=== PATIENT | male | born 1975 | race African-American/Black ===

== ENCOUNTER 2019-03-05 06:55 | Emergency (ER) | payer SELFPAY ==
[2019-03-05 07:57] LABS: #Basophils 0.1 thou/uL (0.0-0.2); #Eosinphils 0.2 thou/uL (0.0-0.7); #Lymphocytes 2.4 thou/uL (1.20-3.40); #Monocytes 0.8 thou/uL (0.11-0.59); #Neutrophils 7.7 thou/uL (1.40-6.50); %Eosinophils 1.8 % (0.0-10.0); %Lymphocytes 21.3 % (21.0-51.0); %Monocytes 7.1 % (0.0-10.0); %Neutrophils 68.8 % (42.0-75.0); ALT (SGPT) 24 U/L (8-55); AST (SGOT) 22 U/L (5-34); Albumin 3.8 g/dL (3.5-5.0); Alkaline Phosphatase 60 U/L (40-150); Anion Gap 9 mmol/L (10-20); BUN (Urea Nitrogen) 12 mg/dL (8.9-20.6); Bilirubin, Total 0.2 mg/dL (0.2-1.2); CK (CPK) 370 U/L (30-200); Calc. Creatinine Clearance 0 mL/min (70-130); Calcium 8.6 mg/dL (7.8-10.44); Carbon Dioxide 28 mmol/L (22-29); Chloride 106 mmol/L (98-107); Estimated GFR-MDRD Greater than 90; Globulin 2.4 g/dL (2.4-3.5); Glucose 88 mg/dL (70-105); Hemoglobin 15.6 g/dL (14.0-18.0); Mean Corpuscular HGB CONC 32.4 g/dL (32.0-36.0); Mean Corpuscular Hemoglobin 30.8 pg (27.0-31.0); Mean Corpuscular Volume 95.2 fL (78.0-98.0); Mean Platelet Volume 8.4 fL (7.4-10.4); Platelet Count 233 thou/uL (130-400); Potassium 4.1 mmol/L (3.5-5.1); Protein, Total 6.2 g/dL (6.0-8.3); RBC Distribution Width 11.9 % (11.5-14.5); Red Blood Cell (RBC) Count 5.06 mill/uL (4.70-6.10); Sodium 139 mmol/L (136-145); White Blood Cell (WBC) Count 11.2 thou/uL (4.8-10.8)
[2019-03-05] MEDS ORDERED: Aspirin Chewable 81 MG TAB ONE (09:05)
--- NOTE | 2019-03-05 09:47 | RAD ---
TWO VIEW CHEST: INDICATION: Chest pain. COMPARISON: Reference is made to 12/13/2008. FINDINGS: No lobar consolidation, effusion, or pneumothorax. Cardiac silhouette is normal in size. IMPRESSION: No focal consolidation. POS: [facility]
== END 2019-03-05 11:18 | disposition home or self-care (01) ==
LOC: ERS 06:55
DX: R07.89 Other chest pain (principal); F32.9 Major depressive disorder, single episode, unspecified; F17.210 Nicotine dependence, cigarettes, uncomplicated; Z71.6 Tobacco abuse counseling
CPT/HCPCS: 36415; 71046; 80053; 82550; 84484; 85025; 93005; 99406

== ENCOUNTER 2020-02-05 22:10 | Emergency (ER) | payer SELFPAY ==
[2020-02-05 22:37] LABS: #Basophils 0.2 thou/uL (0.0-0.2); #Eosinphils 0.1 thou/uL (0.0-0.7); #Lymphocytes 2.8 thou/uL (1.20-3.40); #Monocytes 1.3 thou/uL (0.11-0.59); #Neutrophils 8.5 thou/uL (1.40-6.50); %Basophils 1.7 % (0.0-1.0); %Eosinophils 0.7 % (0.0-10.0); %Lymphocytes 21.8 % (21.0-51.0); %Monocytes 9.9 % (0.0-10.0); %Neutrophils 65.9 % (42.0-75.0); Hemoglobin 15.1 g/dL (14.0-18.0); Mean Corpuscular HGB CONC 34.3 g/dL (32.0-36.0); Mean Corpuscular Hemoglobin 32.2 pg (27.0-31.0); Mean Platelet Volume 8.5 fL (7.4-10.4); Platelet Count 224 thou/uL (130-400); RBC Distribution Width 11.6 % (11.5-14.5); Red Blood Cell (RBC) Count 4.67 mill/uL (4.70-6.10); White Blood Cell (WBC) Count 12.9 thou/uL (4.8-10.8)
[2020-02-05 22:49] LABS: ALT (SGPT) 18 U/L (8-55); AST (SGOT) 23 U/L (5-34); Acetaminophen Less than 6.0 mcg/mL (10.0-30.0); Albumin 4.7 g/dL (3.5-5.0); Alcohol 20 mg/dL (Less than 10); Alkaline Phosphatase 86 U/L (40-110); Anion Gap 22 mmol/L (10-20); BUN (Urea Nitrogen) 11 mg/dL (8.9-20.6); Bilirubin, Total 1.3 mg/dL (0.2-1.2); CK (CPK) 484 U/L (30-200); Calc. Creatinine Clearance 0 mL/min (70-130); Calcium 9.7 mg/dL (7.8-10.44); Carbon Dioxide 18 mmol/L (22-29); Chloride 98 mmol/L (98-107); Estimated GFR-MDRD 72; Globulin 3.1 g/dL (2.4-3.5); Glucose 90 mg/dL (70-105); Potassium 3.7 mmol/L (3.5-5.1); Protein, Total 7.8 g/dL (6.0-8.3); Salicylate Less than 8.0 mg/dL (15.0-30.0); Sodium 134 mmol/L (136-145)
[2020-02-05] MEDS ORDERED: Lorazepam 2 MG/ML VIAL ONE (22:49)
[2020-02-05 23:03] LABS: Amphetamine Detected (NotDetected); Barbiturates Screen Not Detected (NotDetected); Benzodiazepine Screen Not Detected (NotDetected); Cocaine Metabolite Screen Detected (NotDetected); Medtox Control Line Valid? VALID (VALID); Medtox Reader # READER 1; Methadone Not Detected (NotDetected); Methamphetamine Detected (NotDetected); Opiate Screen Not Detected (NotDetected); Oxycodone Screen Not Detected (NotDetected); Phencyclidine (PCP) Not Detected (NotDetected); THC/Cannabinoid Screen Not Detected (NotDetected); Tricyclic Screen Not Detected (NotDetected)
== END 2020-02-05 23:07 | disposition home or self-care (01) ==
LOC: ERS 22:10
DX: F14.90 Cocaine use, unspecified, uncomplicated (principal); F15.90 Other stimulant use, unspecified, uncomplicated; F32.9 Major depressive disorder, single episode, unspecified; F17.210 Nicotine dependence, cigarettes, uncomplicated; Z71.6 Tobacco abuse counseling
CPT/HCPCS: 80053; 80306; 80307; 82550; 85025; 99406; J2060

== ENCOUNTER 2020-05-12 12:49 | Emergency (ER) | payer SELFPAY ==
--- NOTE | 2020-05-12 14:14 | RAD ---
LEFT FOOT THREE VIEWS: History: Pain. FINDINGS: Tarsals appear intact. Metatarsals and phalangeal intact. MTP joint is unremarkable. IMPRESSION: No acute findings. POS: AGW
[2020-05-12] MEDS ORDERED: Adacel (T-DAP) 0.5 ML SYRINGE ONE (14:31)
[2020-05-12] MEDS ORDERED: Bacitracin 1 PK ONE (14:32)
== END 2020-05-12 14:49 | disposition home or self-care (01) ==
LOC: ERS 12:49
DX: S91.331A Puncture wound without foreign body, right foot, initial encounter (principal); F32.9 Major depressive disorder, single episode, unspecified; F17.200 Nicotine dependence, unspecified, uncomplicated; Z23 Encounter for immunization; W22.8XXA Striking against or struck by other objects, initial encounter
CPT/HCPCS: 90471; 90715

== ENCOUNTER 2020-05-24 06:26 | Observation (INO) | payer SELFPAY ==
[2020-05-24 06:55] LABS: #Basophils 0.2 thou/uL (0.0-0.2); #Eosinphils 0.2 thou/uL (0.0-0.7); #Lymphocytes 3.6 thou/uL (1.20-3.40); #Monocytes 0.9 thou/uL (0.11-0.59); #Neutrophils 7.3 thou/uL (1.40-6.50); %Basophils 1.3 % (0.0-1.0); %Eosinophils 1.4 % (0.0-10.0); %Lymphocytes 29.9 % (21.0-51.0); %Monocytes 7.1 % (0.0-10.0); %Neutrophils 60.3 % (42.0-75.0); Hemoglobin 14.7 g/dL (14.0-18.0); Mean Corpuscular HGB CONC 33.3 g/dL (32.0-36.0); Mean Corpuscular Hemoglobin 31.3 pg (27.0-31.0); Mean Platelet Volume 8.4 fL (7.4-10.4); Platelet Count 233 thou/uL (130-400); RBC Distribution Width 11.6 % (11.5-14.5)
[2020-05-24 07:17] LABS: ALT (SGPT) 27 U/L (8-55); AST (SGOT) 26 U/L (5-34); Albumin 4.2 g/dL (3.5-5.0); Alkaline Phosphatase 68 U/L (40-110); Anion Gap 12 mmol/L (10-20); BUN (Urea Nitrogen) 10 mg/dL (8.9-20.6); Bilirubin, Total 0.2 mg/dL (0.2-1.2); Calc. Creatinine Clearance 0 mL/min (70-130); Calcium 8.9 mg/dL (7.8-10.44); Carbon Dioxide 25 mmol/L (22-29); Chloride 108 mmol/L (98-107); Estimated GFR-MDRD 83; Globulin 2.9 g/dL (2.4-3.5); Glucose 88 mg/dL (70-105); Lipase 21 U/L (8-78); Potassium 3.8 mmol/L (3.5-5.1); Protein, Total 7.1 g/dL (6.0-8.3); Sodium 141 mmol/L (136-145)
--- NOTE | 2020-05-24 07:47 | RAD ---
Chest one view HISTORY: Chest pain. COMPARISON: 03/05/2019. FINDINGS: Cardiac silhouette is magnified by projection. Pulmonary vasculature is unremarkable. Mediastinum is midline. No lobar consolidation or evidence of pneumothorax. gas pumping station helper leads overlie the chest. IMPRESSION : No active cardiopulmonary abnormalities are demonstrated.
[2020-05-24] MEDS ORDERED: Ondansetron ODT 4 MG TAB PO PRN (09:14)
[2020-05-24] MEDS ORDERED: Acetaminophen 325 MG TAB PO PRN (09:14)
[2020-05-24] MEDS ORDERED: Ondansetron PF 4 MG/2 ML Vial IVP PRN (09:14)
[2020-05-24 10:52] VITALS: BMI 25.1
[2020-05-24 11:22] LABS: Troponin I 0.016 ng/mL (< 0.028)
[2020-05-24 13:52] LABS: Troponin I 0.014 ng/mL (< 0.028)
--- NOTE | 2020-05-24 14:17 | PDOC.HHP ---
Hospitalist HPI - History of Present Illness chest pain History of Present Illness: 44 years old male with no significant past medical history who presented to the emergency room chest pain chest pain started earlier today was sharp nonradiating 8 out of 10 pain no fever chills nausea or vomiting no diaphoresis no exacerbating or alleviating factors and was constant in the emergency room first cardiac enzyme and EKGs were unremarkable however repeat EKG and cardiac monitoring showed possible heart block second-degree therefore patient is being admitted for further treatment management cardiology consulted for further arrhythmia reviewing EKG showed second-degree heart block type I Hospitalist ROS - Review of Systems All other systems reviewed; all pertinent +/- noted in HPI/Subj - Medication Medications: no home meds Hospitalist History - Past Medical History Cardiac: reports: no pertinent history Pulmonary: reports: no pertinent history - Past Surgical History Past Surgical History: reports: no pertinent history - Family History Family History: reports: no pertinent history - Social History Smoking Status: Never smoker Alcohol: reports: None Drugs: reports: none - Exam General Appearance: NAD, awake alert Eye: PERRL, anicteric sclera ENT: normocephalic atraumatic Neck: supple, symmetric Heart: RRR, no murmur Respiratory: CTAB, no wheezes Gastrointestinal: soft, non-tender Extremities: no cyanosis, no clubbing Skin: normal turgor Neurological: cranial nerve grossly intact Musculoskeletal: normal tone Psychiatric: normal affect, normal behavior Hospitalist Results - Labs Result Diagrams: 05/24/20 06:46 05/24/20 06:46 Lab results: WBC 12.0 thou/uL (4.8-10.8) H 05/24/20 06:46 Hgb 14.7 g/dL (14.0-18.0) 05/24/20 06:46 Hct 44.1 % (42.0-52.0) 05/24/20 06:46 MCV 94.0 fL (78.0-98.0) 05/24/20 06:46 Plt Count 233 thou/uL (130-400) 05/24/20 06:46 Neutrophils % 60.3 % (42.0-75.0) 05/24/20 06:46 Sodium 141 mmol/L (136-145) 05/24/20 06:46 Potassium 3.8 mmol/L (3.5-5.1) 05/24/20 06:46 Chloride 108 mmol/L (98-107) H 05/24/20 06:46 Carbon Dioxide 25 mmol/L (22-29) 05/24/20 06:46 BUN 10 mg/dL (8.9-20.6) 05/24/20 06:46 Creatinine 1.17 mg/dL (0.7-1.3) 05/24/20 06:46 Glucose 88 mg/dL (70-105) 05/24/20 06:46 Calcium 8.9 mg/dL (7.8-10.44) 05/24/20 06:46 Total Bilirubin 0.2 mg/dL (0.2-1.2) 05/24/20 06:46 AST 26 U/L (5-34) 05/24/20 06:46 ALT 27 U/L (8-55) 05/24/20 06:46 Alkaline Phosphatase 68 U/L (40-110) 05/24/20 06:46 Troponin I 0.014 ng/mL (< 0.028) 05/24/20 12:37 B-Natriuretic Peptide 102.1 pg/mL (0-100) H 05/24/20 06:46 Serum Total Protein 7.1 g/dL (6.0-8.3) 05/24/20 06:46 Albumin 4.2 g/dL (3.5-5.0) 05/24/20 06:46 Lipase 21 U/L (8-78) 05/24/20 06:46 - EKG Interpretation EKG: multipel reviewed some show NSR and one showed 2nd degree heart block type one - Radiology Interpretation Chest x-ray Additional Comment: No acute cardiopulmonary infiltrates Hospitalist H&P A/P - Problem (1) Chest pain Code(s): R07.9 - CHEST PAIN, UNSPECIFIED Status: Acute (2) Second degree heart block Code(s): I44.1 - ATRIOVENTRICULAR BLOCK, SECOND DEGREE Status: Acute - Plan Plan: Chest pain most likely musculoskeletal rule out ACS Cardiology has been consulted EKG reviewed most likely second-degree heart block type I, We will cycle cardiac enzymes and EKGs continue telemetry monitoring and send for stress test Send for lipid panel and A1c and start patient on aspirin, nitroglycerin and morphine as needed Repeat labs in a.m. Full code DVT prophylaxis Lovenox Patient will be placed under observation with lengths mellitus type I midnight
--- NOTE | 2020-05-24 15:20 | CON ---
DATE OF CONSULTATION: 05/24/2020 INDICATIONS FOR CONSULTATION: A 44-year-old patient with chest pain. HISTORY OF PRESENT ILLNESS: This is a 44-year-old gentleman who said he had chest pain for the 1st time earlier today. 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 He said it had been taken while he had been retained earlier. He was already picked up some money apparently, but he said he started noticing some right-sided chest pain, he said radiated to the right shoulder. He had no other associated symptoms at least according to what he is telling me. He has no previous cardiac history. He has no history of hypertension, diabetes, or hypercholesterolemia that we are aware of. He had one uncle who apparently had some strokes in his 40s and eventually . The only risk factor I see that he has for coronary artery disease is that he smokes a half a pack a day and smokes for about 20 years. When he presented to the emergency room and I believe since that time, he has not had any significant pain, but he does have some tenderness noted in the area. PAST MEDICAL HISTORY: Unremarkable except for some depression. SOCIAL HISTORY: He is single. He has 4 children with no heart disease. He smokes half a pack a day, has done for about 20 years. He sometimes works doing construction. FAMILY HISTORY: As noted above for the uncle with unknown heart disease and strokes in the past. ALLERGIES: HE IS ALLERGIC TO IODINE AND SHELLFISH. REVIEW OF SYSTEMS: A 12-point review of systems is unremarkable except for one episode of possible syncope in his 30s and none since that time. He says he has occasional leg cramps when he works too hard. He also has some problems with diarrhea when he eats, sometimes he may have irritable bowel syndrome. PHYSICAL EXAMINATION: GENERAL: A well-developed, well-nourished gentleman, in no acute distress. VITAL SIGNS: Blood pressure 105/70, heart rates in the 60s to 70s and shows a sinus rhythm with a second-degree heart block type 1. HEENT: Head is normocephalic and atraumatic. NECK: Carotid pulses are present. There are no bruits. CHEST: Clear to auscultation without rales, rhonchi, or wheezing. Also noted on the chest area, he has reproducible chest pain in the right upper anterior chest area close to the shoulder, but over the rib areas, but otherwise nothing on the left side. CARDIOVASCULAR: Regular rate and rhythm. There were no significant murmurs, heaves, thrills, bruits, or rubs. ABDOMEN: Soft and nontender. Positive bowel sounds are present. EXTREMITIES: No clubbing, cyanosis, or edema. Pedal pulses are present. NEUROLOGIC: The patient is intact; however, he does have somewhat flat affect. He is very hard to get a history from. He speaks very softly and repeatedly had to be told to speak up, so that I can hear. He was mumbling, but otherwise no significant gross focal deficits were noted. SKIN: Warm and dry. LABORATORY DATA: WBC of 12, hemoglobin was 14, and platelet count 233,000. Sodium is 141, potassium 3.8, BUN was 10 with a creatinine of 1.17, and blood sugar was 88. His BNP was 102. Troponin-I is negative x2. IMPRESSION: 1. A 44-year-old with chest pain, which is reproducible on examination in the right upper anterior chest area. His EKG does not show any evidence of ischemia, so it could suggest that this gentleman can go undergo a treadmill, just a [facility] protocol treadmill. Otherwise, he could be discharged and can be worked up as an outpatient. 2. History of second degree heart block type 1. He is asymptomatic. This is of no consequence at this time unless the heart rate remained in the 30s and 40s, which apparently does occur while he was sleeping and has a second-degree heart block type 1, not a type 2, and we just continue to monitor that, and if he becomes symptomatic, then certainly may need to undergo further evaluation. 3. Slight abnormality of the EKG with T-wave inversions in V1 and V2, but again no significant abnormalities were noted. At this time, we could proceed with stress testing as well as echocardiogram, would agree with that to rule out any evidence of structural abnormalities, but otherwise from a cardiac standpoint, the patient appears to be stable. Should the stress test be abnormal, then I will be more than happy to continue to follow the patient and further recommendations would follow. Otherwise, if the stress test is negative and the echocardiogram is unremarkable, the patient could be discharged to home later today. Job ID: [id number]
[2020-05-25 05:22] LABS: #Basophils 0.1 thou/uL (0.0-0.2); #Eosinphils 0.3 thou/uL (0.0-0.7); #Lymphocytes 2.8 thou/uL (1.20-3.40); #Monocytes 0.6 thou/uL (0.11-0.59); #Neutrophils 3.6 thou/uL (1.40-6.50); %Basophils 1.3 % (0.0-1.0); %Eosinophils 4.3 % (0.0-10.0); %Lymphocytes 37.4 % (21.0-51.0); %Monocytes 8.2 % (0.0-10.0); %Neutrophils 48.8 % (42.0-75.0); Hemoglobin 13.7 g/dL (14.0-18.0); Mean Corpuscular HGB CONC 32.6 g/dL (32.0-36.0); Mean Corpuscular Hemoglobin 30.6 pg (27.0-31.0); Mean Corpuscular Volume 94.1 fL (78.0-98.0); Mean Platelet Volume 8.5 fL (7.4-10.4); Platelet Count 213 thou/uL (130-400); RBC Distribution Width 11.5 % (11.5-14.5); Red Blood Cell (RBC) Count 4.47 mill/uL (4.70-6.10); White Blood Cell (WBC) Count 7.4 thou/uL (4.8-10.8)
[2020-05-25 05:41] LABS: Anion Gap 11 mmol/L (10-20); BUN (Urea Nitrogen) 13 mg/dL (8.9-20.6); Calc. Creatinine Clearance 87 mL/min (70-130); Calcium 8.8 mg/dL (7.8-10.44); Carbon Dioxide 25 mmol/L (22-29); Chloride 109 mmol/L (98-107); Estimated GFR-MDRD 83; Glucose 102 mg/dL (70-105); Potassium 3.9 mmol/L (3.5-5.1); Sodium 141 mmol/L (136-145)
[2020-05-25 07:35] VITALS: BP 103/71; TEMP 97.6
[2020-05-25] MEDS ORDERED: Enoxaparin Sodium 40 MG/0.4 ML SYRINGE SC SCH ×2 (09:00→10:00)
--- NOTE | 2020-05-25 11:42 | PDOC.CPN ---
- Subjective Date: 05/25/20 Time: 09:00 Interval history: The pt seen and examined. No overnight events. No cardiac complaints. - Objective Allergies/Adverse Reactions: Allergies Allergy/AdvReac Type Severity Reaction Status Date / Time iodine Allergy Verified 05/24/20 10:09 shellfish derived Allergy Verified 05/24/20 10:09 Vital Signs & Weight: Vital Signs Temp Pulse Resp BP Pulse Ox 05/25/20 07:33 97.6 F 50 L 13 103/71 98 05/25/20 03:27 97.7 F 51 L 18 105/66 99 Weight 165 lb 7 oz - Physical Exam General: alert & oriented x3 HEENT: mucus membranes moist Neck: supple neck Cardiac: regular rate and rhythm, S1/S2 Lungs: clear to auscultation Neuro: cranial nerve 2-12 intact Abdomen: no masses - Labs Result Diagrams: 05/25/20 05:11 05/25/20 05:11 Troponin/CKMB Troponin I 0.014 ng/mL (< 0.028) 05/24/20 12:37 - Telemetry Sinus rhythms and dysrhythmias: other (SR with HR 40-50s with any cardiac symptoms) - Assessment/Plan Assessment/Plan: 1. Chest pain - mildly dull like discomfort continuously in Rt upper chest even when he was resting well. He walks around nurse station without any other cardiac complaints. 2. 2nd AVB type 1 - there was 1 episode of questionable 2nd AVB type 2, which reviewed by Dr Hull. Per Dr Hull, it was 2nd AVB type 1. during the episode, the pt was asymptomatic 3. Bradycardia - SR with HR 40-50s with any cardiac symptoms MAR reviewed * Ok to d/c home today; strongly recommended the pt to found his PCP
== END 2020-05-25 09:57 | disposition home or self-care (01) ==
LOC: ERS 06:26 → 2SE 10:01
PROVIDERS: ADMIT Internal Medicine; ATTEND Internal Medicine
DX: R07.89 Other chest pain (principal); I44.1 Atrioventricular block, second degree; R00.1 Bradycardia, unspecified; F17.210 Nicotine dependence, cigarettes, uncomplicated; F32.9 Major depressive disorder, single episode, unspecified; Z91.013 Allergy to seafood; Z91.041 Radiographic dye allergy status
CPT/HCPCS: 36415; 71045; 80048; 80053; 83690; 83880; 84484; 85025; 93005; 93017; 93306; 94760; 96372; G0378; J1650

== ENCOUNTER 2020-08-31 14:26 | Emergency (ER) | payer SELFPAY ==
[2020-08-31 15:14] LABS: #Basophils 0.1 thou/uL (0.0-0.2); #Eosinphils 0.2 thou/uL (0.0-0.7); #Lymphocytes 2.7 thou/uL (1.20-3.40); #Monocytes 1.6 thou/uL (0.11-0.59); #Neutrophils 8.3 thou/uL (1.40-6.50); %Basophils 0.7 % (0.0-1.0); %Eosinophils 1.8 % (0.0-10.0); %Lymphocytes 20.8 % (21.0-51.0); %Monocytes 12.3 % (0.0-10.0); %Neutrophils 64.4 % (42.0-75.0); Hemoglobin 16.6 g/dL (14.0-18.0); Mean Corpuscular HGB CONC 35.5 g/dL (32.0-36.0); Mean Corpuscular Hemoglobin 32.7 pg (27.0-31.0); Mean Corpuscular Volume 92.3 fL (78.0-98.0); Platelet Count 224 thou/uL (130-400); RBC Distribution Width 11.1 % (11.5-14.5); Red Blood Cell (RBC) Count 5.06 mill/uL (4.70-6.10); White Blood Cell (WBC) Count 12.9 thou/uL (4.8-10.8)
[2020-08-31 15:28] LABS: ALT (SGPT) 20 U/L (8-55); AST (SGOT) 30 U/L (5-34); Acetaminophen Less than 6.0 mcg/mL (10.0-30.0); Albumin 4.1 g/dL (3.5-5.0); Alcohol Less than 10 mg/dL (Less than 10); Alkaline Phosphatase 63 U/L (40-110); Anion Gap 16 mmol/L (10-20); BUN (Urea Nitrogen) 8 mg/dL (8.9-20.6); Bilirubin, Total 0.7 mg/dL (0.2-1.2); CK (CPK) 718 U/L (30-200); Calc. Creatinine Clearance 0 mL/min (70-130); Calcium 9.1 mg/dL (7.8-10.44); Carbon Dioxide 21 mmol/L (22-29); Chloride 103 mmol/L (98-107); Estimated GFR-MDRD 78; Globulin 3.1 g/dL (2.4-3.5); Glucose 122 mg/dL (70-105); Potassium 3.7 mmol/L (3.5-5.1); Protein, Total 7.2 g/dL (6.0-8.3); Salicylate Less than 8.0 mg/dL (15.0-30.0); Sodium 136 mmol/L (136-145)
== END 2020-08-31 16:20 | disposition home or self-care (01) ==
LOC: ERS 14:26
DX: F19.10 Other psychoactive substance abuse, uncomplicated (principal); F32.9 Major depressive disorder, single episode, unspecified; F17.200 Nicotine dependence, unspecified, uncomplicated
CPT/HCPCS: 36415; 80053; 80307; 82550; 85025

== ENCOUNTER 2020-12-20 06:37 | Emergency (ER) | payer SELFPAY ==
--- NOTE | 2020-12-20 07:39 | CT ---
CT head noncontrast HISTORY: Fall. Injury. FINDINGS: There is no evidence of acute intracranial hemorrhage or infarct. The ventricles appear nor mal in size, shape and position. There is no mass effect or shift of midline structures. Visualized paranasal sinuses remain well-aera eve. Soft tissue prominence over the left supraorbital and right lateral orbital levels may represent cont usion. No fractures evident. IMPRESSION : No acute intracranial abnormalities are demonstrated.
--- NOTE | 2020-12-20 07:40 | RAD ---
Chest one view HISTORY: Syncope. COMPARISON: 05/24/2020. FINDINGS: Cardiac silhouette is magnified by projection. Pulmonary vasculature are unremarkable. Mediastinum is midline. No confluent airspace consolidation or evidence of pneumothorax. IMPRESSION : No abnormalities are demonstrated.
== END 2020-12-20 08:55 | disposition home or self-care (01) ==
LOC: ERS 06:37
DX: S01.81XA Laceration without foreign body of other part of head, initial encounter (principal); J02.9 Acute pharyngitis, unspecified; F12.10 Cannabis abuse, uncomplicated; W22.8XXA Striking against or struck by other objects, initial encounter
CPT/HCPCS: 12011; 70450; 71045; 87081; 87430; 93005

== ENCOUNTER 2021-02-25 05:55 | Emergency (ER) | payer SELFPAY ==
[2021-02-25] MEDS ORDERED: Ondansetron ODT 4 MG TAB ONE (07:12)
== END 2021-02-25 07:08 | disposition home or self-care (01) ==
LOC: ERS 05:55
DX: R06.00 Dyspnea, unspecified (principal)
CPT/HCPCS: 71045; 93005; Q0162

== ENCOUNTER 2023-08-02 09:14 | Emergency (ER) | payer SELFPAY ==
[2023-08-02 09:59] LABS: #Basophils 0.2 thou/uL (0.0-0.2); #Eosinphils 0.4 thou/uL (0.0-0.7); #Monocytes 1.3 thou/uL (0.11-0.59); #Neutrophils 12.8 thou/uL (1.40-6.50); %Basophils 1.1 % (0.0-1.0); %Eosinophils 2.6 % (0.0-10.0); %Lymphocytes 9.9 % (21.0-51.0); %Monocytes 7.8 % (0.0-10.0); Hematocrit 49.6 % (42.0-52.0); Hemoglobin 16.6 g/dL (14.0-18.0); Mean Corpuscular HGB CONC 33.5 g/dL (32.0-36.0); Mean Corpuscular Hemoglobin 30.3 pg (27.0-31.0); Mean Corpuscular Volume 90.5 fl (78.0-98.0); Mean Platelet Volume 10.2 fL (7.4-10.4); Platelet Count 189 10x3/uL (130-400); RBC Distribution Width 13.2 % (11.5-14.5); Red Blood Cell (RBC) Count 5.48 mill/uL (4.70-6.10); White Blood Cell (WBC) Count 16.4 10x3/uL (4.8-10.8)
[2023-08-02 10:11] LABS: Troponin I Less than 0.010 ng/mL (< 0.028)
[2023-08-02 10:16] LABS: ALT (SGPT) 26 U/L (8-55); AST (SGOT) 33 U/L (5-34); Albumin 4.2 g/dL (3.5-5.0); Alkaline Phosphatase 69 U/L (40-110); Anion Gap 12 mmol/L (10-20); BUN (Urea Nitrogen) 13 mg/dL (8.9-20.6); Bilirubin, Total 1.1 mg/dL (0.2-1.2); Calc. Creatinine Clearance 0 mL/min (70-130); Calcium 9.1 mg/dL (7.8-10.44); Carbon Dioxide 27 mmol/L (22-29); Chloride 106 mmol/L (98-107); Estimated GFR 86; Globulin 2.1 g/dL (2.4-3.5); Glucose 104 mg/dL (70-105); Potassium 3.6 mmol/L (3.5-5.1); Protein, Total 6.3 g/dL (6.0-8.3); Sodium 141 mmol/L (136-145)
[2023-08-02] MEDS ORDERED: Ketorolac Tromethamine 30 MG/ML VIAL ONE (10:57)
[2023-08-02] MEDS ORDERED: Aspirin 325 MG TAB ONE (10:57)
[2023-08-02 11:40] LABS: SARS-CoV-2 NAA Rapid Test Not Detected (NotDetected)
[2023-08-02] MEDS ORDERED: Cefepime 2 GM VIAL ONE (14:31)
[2023-08-02 15:00] LABS: Troponin I Less than 0.010 ng/mL (< 0.028)
[2023-08-02 15:01] LABS: Bacteria/HPF None Seen HPF (None Seen); Bilirubin Negative (Negative); Blood, Urine Negative (Negative); CAUTI Indications for Culture Dysuria,urgency,freq; Clarity Clear (Clear); Glucose, Urine (Dipstick) Normal (Negative); Ketone, Urine 10 mg/dL (Negative); Leukocyte Negative Leu/uL (Negative); Nitrite Negative (Negative); Protein, Urine (Dipstick) 10 mg/dL (Neg-Trace); RBC/HPF 0-3 HPF (0-3); Specific Gravity, Urine 1.033 (1.002-1.036); Squamous Epithelial None Seen HPF (0-3); WBC/HPF 0-3 HPF (0-3)
[2023-08-02 15:04] LABS: Urine Culture Reflex No No
[2023-08-02 15:09] LABS: Amphetamine Detected (NotDetected); Barbiturates Screen Not Detected (NotDetected); Benzodiazepine Screen Not Detected (NotDetected); Cocaine Metabolite Screen Detected (NotDetected); Methadone Not Detected (NotDetected); Methamphetamine Detected (NotDetected); Opiate Screen Not Detected (NotDetected); Oxycodone Screen Not Detected (NotDetected); Phencyclidine (PCP) Detected (NotDetected); THC/Cannabinoid Screen Not Detected (NotDetected); Tricyclic Screen Not Detected (NotDetected)
[2023-08-02] MEDS ORDERED: Acetaminophen 500 MG TAB ONE (16:23)
== END 2023-08-02 18:20 | disposition left against medical advice (07) ==
LOC: ERS 09:14
DX: R07.9 Chest pain, unspecified (principal); F17.210 Nicotine dependence, cigarettes, uncomplicated
CPT/HCPCS: 36415; 71045; 80053; 80306; 81001; 83605; 84484; 85025; 85379; 87040; 93005; 96365; 96366; 96367; 96375; J0692; J1885